=== PATIENT | female | born 1960 | race Caucasian/White ===

== ENCOUNTER 2024-06-08 07:50 | Emergency (ER) | payer OTHER, SELFPAY ==
[2024-06-08 07:51] VITALS: BP 132/75; PULSE 95; RESP 14; TEMP 36.6; O2SAT 97
[2024-06-08 08:15] VITALS: BMI 25.0
[2024-06-08] MEDS: Diphth,Pertuss(Acell),Tet Vac 0.5 ML Vial IM (08:19)
--- NOTE | 2024-06-08 09:05 | EX.ED.UPPERE ---
HPI History of Present Illness Chief Complaint: Laceration Informant: patient and family Narrative Narrative: [id number] female here with family and lacerations to her right digits after falling. Just come down steps when she stumbled hand on the wall. Did not grab a rail. No paresthesias. Patient is not on any anticoagulation medications. Tetanus unknown. No other injuries. Tetanus Immunization: Unknown [facility] Medical History History of breast cancer Pancreas cyst Fatty liver Diabetes Hypertension Allergy/AdvReac Type Severity Reaction Status Date / Time codeine AdvReac Nausea Verified 06/08/24 07:52 meperidine (From Demerol) AdvReac Nausea Verified 06/08/24 07:52 Social History Smoking Status: Never smoker ROS ROS ED Constitutional Constitutional ED: Denies fever(s) ENT ENT ED: Denies sore throat Cardiovascular Cardiovascular: Denies chest pain Respiratory/Chest Respiratory/Chest: Denies cough or dyspnea on exertion Gastrointestinal Gastrointestinal: Denies abdominal pain, diarrhea, nausea or vomiting Genitourinary Genitourinary ED: Denies dysuria Musculoskeletal Musculoskeletal: Reports extremity pain Integumentary Reports wounds; Denies rash Neurologic Neurologic: Denies headache(s), paresthesias or weakness EXAM Physical Exam Const Vital Signs: 06/08/24 07:51 Temperature 98 F Temperature Source Temporal Pulse Rate 95 Respiratory Rate 14 Blood Pressure 132/75 H Blood Pressure Mean 94 Pulse Ox 97 Oxygen Delivery Method Room Air Positive well nourished and well developed General Appearance ED: well developed and NAD HEENT Reports moist mucous membranes normocephalic and atraumatic Eyes conjunctivae normal; Negative for EOMs intact bilaterally Neck General: Negative for tenderness Chest Wall Chest: Negative for tenderness Resp normal respiratory effort and normal air movement Effort and Inspection: symmetric chest movement; Negative for respiratory distress Cardio regular rate, regular rhythm and no murmurs Peripheral Pulses: pulses 2+ throughout GI normal to inspection, nondistended, normoactive bowel sounds and non-tender Palpation: Negative for guarding or rebound tenderness present Back/Spine no CVA tenderness and no thoracic nor lumbar tenderness Extremity Extremity Narrative: Right upper extremity: Hand: Ring finger 1.5 cm laceration horizontally across the middle phalanx with minimal bleeding. Middle finger: 3 cm flap laceration avulsion of the volar aspect of the middle phalanx. Index finger: 2 cm very superficial flap avulsion middle phalanx. There is full range of motion of the DIP and the PIP joints. There is no tendon exposure visualized. Cap refill less than 3 seconds. General Extremety ED: Yes tenderness; Negative for edema General Extremity: Negative for edema Neuro oriented x3 and no sensory deficits noted Sensorium / Orientation: awake and alert Skin Skin Narrative: See above MDM MDM MDM Narrative Medical decision making narrative: interventions / MDM: Differential diagnosis: Finger lacerations Diagnosis considered but do not suspect: No tendon exposure or laceration My EKG interpretation: N/A Imaging independently reviewed and interpreted by myself: N/A External documents reviewed: N/A Test considered but not ordered:N/A ED course: Multiple lacerations of the digits of right hand. Tetanus updated. Flexor sheath block was performed. Laceration was repaired. Splint was custom for protection. Wound care discussed. Outpatient follow-up with PCP for suture removal. All questions were answered. Procedure note: Verbal consent. Normal sterile conditions. Alcohol prep of the skin was performed. Flexor sheath block was performed at the distal metacarpals of fourth third and second metacarpals. A total of 2.5 cc injected in each space. Good analgesia was obtained. Wounds were copiously flushed with normal saline using a syringe. Ring finger total of 2, 5-0 nylon simple interrupted sutures were placed with good approximation. Middle finger total of 5, 5-0 nylon simple interrupted sutures placed placed with good approximation. Index finger total of 3, 5-0 nylon sutures placed with good approximation of the flap. Hemostasis was controlled. Xeroform dressing placed by nursing staff. I customize a 3 inch cast material volar splint to the digits after nylon sleeve was placed. Roger wrap used to secure. Patient tolerated procedure well. Re-evaluation: stable Disposition discussed with patient/family/significant other: Patient and family Case discussed with consulting clinician: N/A This note was generated with [employer] software. It may contain incorrect words, spelling, and punctuation that were not noted in checking the note before signing. Discharge Plan Triage Chief Complaint: Laceration ED Provider: Christiano Coffman Dx/Rx/DC Orders Clinical Impression: Lacerations of multiple sites of right arm, Finger laceration, Tetanus toxoid vaccination administered at current visit Instructions: Tdap Vaccine, ED Laceration, Hand: All Closures Stand Alone Forms: ED Work / School Excuse Primary Care Provider: RADHA MARCH Activity Restrictions/Additional Instructions: Multiple lacerations of the digits, repaired. Use splint for protection and comfort. Wound care as discussed. Your tetanus was updated in the ED. follow-up your doctor in 10 to 14 days for reevaluation and suture removal. Print Language: [place]an Disposition Disposition: Home, Self Care Discharge Date/Time: 06/08/24 09:10
== END 2024-06-08 09:10 | disposition home or self-care (01) ==
LOC: ED 09:06
PROVIDERS: Emergency Provider Emergency Medicine; Visit Provider Emergency Medicine
DX: S61.214A Laceration without foreign body of right ring finger without damage to nail, initial encounter (principal); E11.9 Type 2 diabetes mellitus without complications; I10 Essential (primary) hypertension; W10.9XXA Fall (on) (from) unspecified stairs and steps, initial encounter; Z85.3 Personal history of malignant neoplasm of breast; Z23 Encounter for immunization; S61.212A Laceration without foreign body of right middle finger without damage to nail, initial encounter; S61.218A Laceration without foreign body of other finger without damage to nail, initial encounter
CPT/HCPCS: 12002; 29125; 90715; 99284